=== PATIENT | female | born 1965 | race Caucasian/White ===

== ENCOUNTER 2022-04-24 11:06 | Day surgery (SDC) | payer OTHER, SELFPAY ==
--- NOTE | 2022-04-23 14:48 | HO.ANESPROP2 ---
Documented by User: Yessica Santos NP 04/23/22 14:48 HPI - Anesthesia Eval Consult details Narrative: 56yo F for Colonoscopy [facility] Past Medical History Medical History (Updated 04/24/22 @ 11:21 by Holli Acevedo RN) ADHD Anxiety Asthma Breast cancer, right Nasal polyp Tubular adenoma Surgical History Surgical History H/O colonoscopy H/O umbilical hernia repair History of tonsillectomy S/P trigger finger release Social History Social History Patient Tobacco Use Status: Never used Tobacco Use of substances other than those prescribed or required for medical reasons: No Are you DNR?: No Advance Directives: No Advance Directives Information Provided: Yes Meds Allergies Allergy/AdvReac Type Severity Reaction Status Date / Time aspirin [ASA] Allergy Unknown Verified 04/24/22 11:17 latex Allergy Unknown Verified 04/24/22 11:17 nut - unspecified Allergy Unknown Verified 04/24/22 11:17 Sulfa (Sulfonamide Allergy Unknown Verified 04/24/22 11:17 Antibiotics) tomato Allergy Unknown Verified 04/24/22 11:17 Home Medications Medication Instructions Recorded Confirmed Last Taken Type ProAir HFA 03/19/22 Unknown History Singulair 03/19/22 Unknown History atomoxetine 03/19/22 Unknown History fluoxetine 03/19/22 Unknown History Exam Exam Date and Time: April 23, 2022 144 Assessment and Plan Assessment Anesthesia Assessment: Chart Reviewed Documented by User: Ashkan Joyce MD 04/24/22 11:39 [facility] Past Medical History Medical History (Updated 04/24/22 @ 11:21 by Holli Acevedo RN) ADHD Anxiety Asthma Breast cancer, right Nasal polyp Tubular adenoma Family History Family history of problems with anesthesia: No Surgical History Surgical History H/O colonoscopy H/O umbilical hernia repair History of tonsillectomy S/P trigger finger release History of Problems with Anesthesia: Unobtainable Social History Social History Patient Tobacco Use Status: Never used Tobacco Use of substances other than those prescribed or required for medical reasons: No Are you DNR?: No Advance Directives: No Advance Directives Information Provided: Yes Meds Allergies Allergy/AdvReac Type Severity Reaction Status Date / Time aspirin [ASA] Allergy Unknown Verified 04/24/22 11:17 latex Allergy Unknown Verified 04/24/22 11:17 nut - unspecified Allergy Unknown Verified 04/24/22 11:17 Sulfa (Sulfonamide Allergy Unknown Verified 04/24/22 11:17 Antibiotics) tomato Allergy Unknown Verified 04/24/22 11:17 Home Medications Medication Instructions Recorded Confirmed Last Taken Type ProAir HFA 03/19/22 Unknown History Singulair 03/19/22 Unknown History atomoxetine 03/19/22 Unknown History fluoxetine 03/19/22 Unknown History Exam Airway Mallampati Class: II TM Dist: >3cm Neck ROM: Full Heart: rrr Lungs: cta Assessment and Plan Final Anesthetic Review Family History of Problems with Anesthesia: No History of Problems with Anesthesia: Unobtainable NPO: Yes ASA Class: II Final Preanesthetic Review: No Changes in Pt Med Stat, Meds/Allgs Chart Reviewed and Consent Obtained/Reviewed Patient Risk: Intermediate Procedure Risk: Low Anesthetic Plan Anesthetic Plan: MAC: and Agree w/ Assess. and Plan Disposition: Standard PACU
[2022-04-24 11:15] VITALS: BMI 23.1
[2022-04-24 11:29] VITALS: BP 141/78; PULSE 102; RESP 15; TEMP 36.6; O2SAT 99
[2022-04-24] MEDS: Lactated Ringers 1,000 ML 100 ML IVCONT (11:38)
--- NOTE | 2022-04-24 12:04 | HO.ANESPROP2 ---
[facility] Past Medical History Medical History (Updated 04/24/22 @ 11:21 by Holli Acevedo, RN) ADHD Anxiety Asthma Breast cancer, right Nasal polyp Tubular adenoma Family History Family history of problems with anesthesia: No Surgical History Surgical History H/O colonoscopy H/O umbilical hernia repair History of tonsillectomy S/P trigger finger release History of Problems with Anesthesia: No Social History Social History Patient Tobacco Use Status: Never used Tobacco Use of substances other than those prescribed or required for medical reasons: No Are you DNR?: No Advance Directives: No Advance Directives Information Provided: Yes Meds Allergies Allergy/AdvReac Type Severity Reaction Status Date / Time aspirin [ASA] Allergy Unknown Verified 04/24/22 11:17 latex Allergy Unknown Verified 04/24/22 11:17 nut - unspecified Allergy Unknown Verified 04/24/22 11:17 Sulfa (Sulfonamide Allergy Unknown Verified 04/24/22 11:17 Antibiotics) tomato Allergy Unknown Verified 04/24/22 11:17 Active Medications: Current Medications Albuterol Sulfate (Albuterol Sulfate (0.083%) 2.5 Mg/3 Ml Vial.Neb) 2.5 mg INHALE ONCE PRN PRN Reason: Shortness of Breath/Wheezing Lactated Ringer's (Lr) 1,000 mls @ 100 mls/hr IVCONT .Q10H [place] Last Admin: 04/24/22 11:38 Dose: 100 mls/hr Home Medications Medication Instructions Recorded Confirmed Last Taken Type ProAir HFA 03/19/22 Unknown History Singulair 03/19/22 Unknown History atomoxetine 03/19/22 Unknown History fluoxetine 03/19/22 Unknown History Exam Exam Date and Time: April 24, 2022 1204 Height,Weight and Vital Signs: Height 5 ft 5 in Weight 63.049 kg Last Vital Signs Temp 97.8 F 04/24/22 11:29 Pulse 102 H 04/24/22 11:29 Resp 15 04/24/22 11:29 BP 141/78 H 04/24/22 11:29 Pulse Ox 99 04/24/22 11:29 O2 Del Method 04/24/22 11:29 Airway Mallampati Class: I TM Dist: >3cm Neck ROM: Full Assessment and Plan Assessment Anesthesia Assessment: Anesthesia Plan Discussed and Chart Reviewed Final Anesthetic Review Family History of Problems with Anesthesia: No History of Problems with Anesthesia: No NPO: Yes ASA Class: II Final Preanesthetic Review: No Changes in Pt Med Stat, Meds/Allgs Chart Reviewed, Consent Obtained/Reviewed and Anes Risks/Benef Reviewed Patient Risk: Low Procedure Risk: Low Anesthetic Plan Anesthetic Plan: MAC: Disposition: Standard PACU
--- NOTE | 2022-04-24 12:08 | P.HPSUR_ITS ---
Pre-Procedural Eval Section A Date of Service: 04/24/22 Section B Chief Complaint: screening Details of Present Illness: see h&p no changes Relevant Family History (Specify if Yes): No Relevant Social History: None Present Medications: see Short Stay Collaborative assessment Medical History: No relevant PMH History of Previous Operations: No relevant previous surgery Allergies: Allergies Allergy/AdvReac Type Severity Reaction Status Date / Time aspirin [ASA] Allergy Unknown Verified 04/24/22 11:17 latex Allergy Unknown Verified 04/24/22 11:17 nut - unspecified Allergy Unknown Verified 04/24/22 11:17 Sulfa (Sulfonamide Allergy Unknown Verified 04/24/22 11:17 Antibiotics) tomato Allergy Unknown Verified 04/24/22 11:17 Review of Systems Sugical H&P ROS: Negative: Constitution, Cardiovascular, Respiratory, Neur ological, Psychiatric, Hem-Onc, Allergic/Immunologic, Gastrointestinal, Genitourinary, Musculoskeletal, Integumentary, Endocrine and Eyes/Ears/Nose/Throat Exam Surgical H&P Exam: Normal: HEENT, Normal: Heart, Normal: Lungs, Normal: Extremities, Normal: Abdomen, Normal: Skin and Normal: Neurological Plan Diagnosis/Plan: Unchanged I have reviewed the history and physical and performed a pertinent physical examination on my patient. No changes have occurred unless specified. Time Spent With Patient Time: Total time managing care of this patient today ____ minutes.
--- NOTE | 2022-04-24 12:51 | P.BOP_ITS ---
Brief Operative Note Date of Service: 04/24/22 Pre-op diagnosis: screening Post-op diagnosis: same Procedure: colonoscopy Surgeon: oJse Engle Anesthesia: MAC Was an Ceo Na used for this Procedure?: No Estimated blood loss (mL): 0 Pathology: none sent Condition: stable Disposition: PACU
--- NOTE | 2022-04-24 12:51 | PM.OP ---
Brief Operative Note Date of Service: 04/24/22 Pre-op diagnosis: screening Post-op diagnosis: same Procedure: colonoscopy Surgeon: Jose Engle Anesthesia: MAC Was an Energy Efficiency Engineer used for this Procedure?: No Estimated blood loss (mL): 0 Pathology: none sent Condition: stable Disposition: PACU
[2022-04-24 12:54] VITALS: BP 116/60; PULSE 84; RESP 16; TEMP 36.7; O2SAT 99
[2022-04-24 13:16] VITALS: BP 140/78; PULSE 93; RESP 18; TEMP 36.7; O2SAT 99
--- NOTE | 2022-04-24 23:33 | OP_ITS ---
SURGEON: Jose Engle MD INDICATIONS: Colon cancer screening and prior history of adenomatous colon polyps. PREOPERATIVE DIAGNOSIS: POSTOPERATIVE DIAGNOSIS: PROCEDURE PERFORMED: Colonoscopy to the terminal ileum. ESTIMATED BLOOD LOSS: COMPLICATIONS: ANESTHESIA: Monitored anesthesia care. ASSISTANTS: SPECIMENS: DESCRIPTION OF PROCEDURE: The procedure was performed on 04/24/2022. A history and physical was performed. The risks and benefits of the procedure were explained to the patient. Informed consent was obtained. The patient was placed in the left lateral decubitus position. A digital rectal exam was performed and it was found to be normal. The Olympus pediatric video colonoscope was introduced into the rectum and advanced to the cecum without difficulty. The cecum was identified by translumination, palpation, and identification of the ileocecal valve. Examination was performed. The scope was removed. She tolerated the procedure well and was returned to the recovery area in stable condition. FINDINGS: The terminal ileum was examined and appeared normal. The visualized colonic mucosa was normal. Quality of the prep was good. No polyps were identified. Retroflexed examination showed some small internal hemorrhoids. IMPRESSION: Normal colonoscopy. RECOMMENDATIONS: 1. Follow up as needed. 2. Repeat colonoscopy is recommended in 10 years for average risk individuals. MD EDWARD Finley/FELICITA / [id number]
== END 2022-04-24 13:27 | disposition home or self-care (01) ==
PROVIDERS: PCP Nurse Practitioner Family; Visit Provider Internal Medicine Gastroenterology
PROC: 0DJD8ZZ Inspection of Lower Intestinal Tract, Via Natural or Artificial Opening Endoscopic (ICD-10-PCS; CPT 45378; principal; 2022-04-24 12:10)
DX: Z12.11 Encounter for screening for malignant neoplasm of colon (principal); Z86.010 Personal history of colon polyps; K64.8 Other hemorrhoids; J45.909 Unspecified asthma, uncomplicated; C50.911 Malignant neoplasm of unspecified site of right female breast; F90.9 Attention-deficit hyperactivity disorder, unspecified type; F41.1 Generalized anxiety disorder; Z79.51 Long term (current) use of inhaled steroids; Z79.899 Other long term (current) drug therapy; Z88.2 Allergy status to sulfonamides; Z88.8 Allergy status to other drugs, medicaments and biological substances; Z91.040 Latex allergy status
CPT/HCPCS: 45378